=== PATIENT | female | born 1995 | race African-American/Black ===

== ENCOUNTER 2018-12-15 18:21 | Outpatient (CLI) | payer MEDICAID ==
[~2018-12-15] VITALS: Ht 157.5 cm; Wt 72.3 kg
[~2018-12-15 18:21] MED LIST: PRENATAL1 TA2 PO; VITAMIN D31000 IU PO
[2018-12-15 18:32] VITALS: BP 115/66; PULSE 85
[2018-12-15] MEDS ORDERED: PRENATAL (18:36)
[2018-12-15] MEDS ORDERED: NATURAL IRON65 MG (18:36)
[2018-12-15] MEDS ORDERED: VITAMIN D3400 I1 PO (18:37)
--- NOTE | 2018-12-15 18:45 | NUR ---
Pt arrived on unit with complaints of spotting while going to the bathroom and decreased movement. Pt is 36.3wks G5L3 follows an OB in [place] and reports beign history. EFM and toco monitors started. Audible movement noted. SVE by this RN closed/thick/high with negative amnio-test. Information and FHR tracing reviewed with Dr. Rodriguez. Plan of care discussed with pt and family at the bedside.
--- NOTE | 2018-12-15 19:00 | NUR ---
Pt reports feeling better after hearing FHR, audible movement and no blood noted on SVE. Information reviewed with Dr. Rodriguez. Orders for discharge home received. Discharge instructions reviewed with pt and family at the bedside. Pt verbalized an understanding, agreed with the plan and states no questions or concerns at this time.
== END 2018-12-15 19:05 | disposition home or self-care (01) ==
LOC: LDRO 18:21
DX: Z34.93 Encounter for supervision of normal pregnancy, unspecified, third trimester (principal); Z3A.36 36 weeks gestation of pregnancy